=== PATIENT | female | born 1990 | race Caucasian/White ===

== ENCOUNTER 2016-08-18 18:10 | Emergency (ER) | payer OTHER ==
[2016-08-18 19:05] LABS: % IMMATURE GRANULYOCYTES 0.2 % (0.0-1.1); ABSOLUTE IMMATURE GRANULOCYTES 0.02 10^3/uL (0.00-0.10); ADD DIFF? NO; ADD MORPH? NO; ADD SCAN? NO; ATYPICAL LYMPHOCYTE FLAG 0 (0-99); FRAGMENT RBC FLAG 0 (0-99); HEMATOCRIT 42.1 % (38.0-47.0); HEMOGLOBIN 14.4 g/dL (12.6-16.3); LEFT SHIFT FLG 0 (0-99); LIPEMIA HEMOLYSIS FLAG 90 (0-99); MEAN CELL HEMOGLOBIN 31.5 pg (27.9-34.1); MEAN CELL HEMOGLOBIN CONCENTR. 34.2 g/dL (32.4-36.7); MEAN CELL VOLUME 92.1 fL (81.5-99.8); MEAN PLATELET VOLUME 9.7 fL (8.7-11.7); PLATELET CLUMPS FLAG 0 (0-99); PLATELET COUNT 302 10^3/uL (150-400); RED BLOOD CELL COUNT 4.57 10^6/uL (4.18-5.33); RED CELL DISTRIBUTION WIDTH 12.7 % (11.5-15.2)
[2016-08-18 19:21] LABS: ANION GAP 10 mEq/L (8-16); CALCIUM 9.7 mg/dL (8.5-10.4); CARBON DIOXIDE 25 mEq/l (22-31); CHLORIDE 103 mEq/L (97-110); CREATININE 0.7 mg/dL (0.6-1.0); ETHANOL SERUM < 10 mg/dL (0-10); GLOMERULAR FILTRATION RATE > 60; GLUCOSE 81 mg/dL (70-100); POTASSIUM 4.2 mEq/L (3.5-5.2); SODIUM 138 mEq/L (134-144)
--- NOTE | 2016-08-18 20:40 | EDPHY ---
H & P Stated Complaint: Feels depressed for months; SI; unable to get in to see psychiatrist - Personal History LMP (Females 10-55): 22-28 Days Ago Current Tetanus Diphtheria and Acellular Pertussis (TDAP): Yes - Medical/Surgical History Other PMH: depression - Social History Smoking Status: Current every day smoker Time Seen by Provider: 08/18/16 18:20 HPI/ROS: Chief complaint: Depression, suicidal ideation History of present illness: This is a 26-year-old female who presents to the emergency department for depression and now suicidal ideation. Feeling depressed for number of months. She states recently it is getting so bad that she is having thoughts of killing herself. However, she does not report a specific plan. She denies homicidal ideation. She denies illness or injury. She has attempted to arrange follow-up with the mental health worker, she would like to start medications, she has been unable to get an appointment. She reports she is getting very frustrated with trying to arrange care unsuccessfully. Review of systems: A 10 point review of systems was obtained and other than described above was negative (Eric Huber) - Physical Exam Exam: General Appearance: Alert, nontoxic. Eyes: Pupils equal and round no pallor or injection. ENT, Mouth: Mucous membranes moist. Respiratory: There are no retractions, lungs are clear to auscultation. Cardiovascular: Regular rate and rhythm. Gastrointestinal: Abdomen is soft and nontender, no masses, bowel sounds normal. Neurological: Alert and oriented x4. Strength and sensation intact and symmetrical. Skin: Warm and dry, no rashes. Musculoskeletal: Neck is supple nontender. Extremities are symmetrical, full range of motion. Psychiatric: Patient is oriented X 3, there is no agitation. (Eric Huber) Constitutional: Initial Vital Signs Temperature (C) 36.5 C 08/18/16 18:11 Heart Rate 94 08/18/16 18:11 Respiratory Rate 18 08/18/16 18:11 Blood Pressure 145/100 H 08/18/16 18:11 O2 Sat (%) 98 08/18/16 18:11 O2 Delivery Mode Room Air Allergies/Adverse Reactions: No Known Allergies Allergy (Unverified 08/18/16 18:16) Home Medications: Medication Instructions Recorded NK [No Known Home Meds] 08/18/16 Medical Decision Making ED Course/Re-evaluation: Patient seen under the supervision of my primary supervising physician Dr. Edelmira Zhong. Patient presents to the emergency department with depression now with suicidal ideation. She is medically evaluated and cleared for psychiatric evaluation, this is pending at time of dictation. Care of patient is turned over to my attending physician Dr. Cortney Jarrell at end of shift. (Eric Huber) Differential Diagnosis: Included but not limited to anxiety, depression, bipolar, schizophrenia, substance abuse (Eric Huber) Other Provider: Patient signed out to me at [address] Jarrell pending placement. At 11:50 I was notified that patient has been accepted for transfer to [facility] for inpatient care. (Gagan Diallo) - Data Points Laboratory Results: Laboratory Results 08/18/16 19:00 08/18/16 19:00 Departure - Departure Disposition: Other Psych, Not [facility] Clinical Impression: Suicidal ideation Condition: Good Referrals: NONE *PRIMARY CARE P,. [Primary Care Provider] - As per Instructions
[2016-08-19 01:11] VITALS: RESP 16
[2016-08-19 13:21] VITALS: BP 98/68; PULSE 65; TEMP 97.9; O2SAT 95
== END 2016-08-19 13:19 ==
LOC: EDBD 18:10
DX: R45.851 Suicidal ideations (principal); F17.200 Nicotine dependence, unspecified, uncomplicated
CPT/HCPCS: 80305; G0480